=== PATIENT | female | born 1985 | race Caucasian/White ===

== ENCOUNTER 2016-09-20 20:06 | Emergency (ER) | payer OTHER ==
[2016-09-20 20:23] VITALS: BP 131/69
--- NOTE | 2016-09-20 20:26 | UC ---
Shoulder Pain HPI - HPI Summary HPI Summary: twisted right arm manas booth-believes her shoulder may have been dislocated - History of Current Complaint Chief Complaint: UCUpperExtremity Stated Complaint: SHOULDER PROBLEM Time Seen by Provider: 09/20/16 20:23 Hx Obtained From: Patient Hx Last Menstrual Period: 2 wks ago ?: No Onset/Duration: Sudden Onset, Lasting Hours - 1, Still Present Timing: Constant Severity Initially: Moderate Severity Currently: Moderate Location Of Pain: Is Discrete @ - posterior right shoulder Pain Intensity: 6 Pain Scale Used: 0-10 Numeric Character: Aching, Throbbing Aggravating Factor(s): Nothing Alleviating Factor(s): OTC Meds - 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 Associated Signs And Symptoms: Positive: Negative Related History: Dominant Hand Right - Allergies/Home Medications Allergies/Adverse Reactions: Allergies Allergy/AdvReac Type Severity Reaction Status Date / Time Erythromycin Allergy Severe Vomiting Verified 09/20/16 20:23 Home Medications: Home Medications Ibuprofen TAB* [Motrin TAB* 800 MG] 09/20/16 [History] NK [No Home Medications Reported] 09/20/16 [History Confirmed 09/20/16] PMH/Surg Hx/FS Hx/Imm Hx Previously Healthy: Yes - Surgical History Surgical History: None - Family History Known Family History: Positive: None Family History: no cardiovascular issues in family lineage - Social History Occupation: Employed Full-time Lives: With Family Alcohol Use: Occasionally Substance Use Type: None Smoking Status (MU): Never Smoked Tobacco Review of Systems Constitutional: Negative Skin: Negative Eyes: Negative ENT: Negative Respiratory: Negative Cardiovascular: Negative Gastrointestinal: Negative Genitourinary: Negative Motor: Negative Neurovascular: Negative Musculoskeletal: Arthralgia - right shoulder Neurological: Negative Psychological: Negative All Other Systems Reviewed And Are Negative: Yes Physical Exam Triage Information Reviewed: Yes Appearance: Well-Appearing, No Pain Distress, Well-Nourished Vital Signs: Initial Vital Signs Temp 98.2 F 09/20/16 20:17 Pulse 59 09/20/16 20:17 Resp 12 09/20/16 20:17 BP 131/69 09/20/16 20:17 Pulse Ox 100 09/20/16 20:17 Vital Signs Reviewed: Yes Eye Exam: Normal Eyes: Positive: Conjunctiva Clear ENT Exam: Normal ENT: Positive: Normal ENT inspection, Hearing grossly normal. Negative: Nasal congestion, Nasal drainage, Trismus, Muffled/hoarse voice Dental Exam: Normal Neck exam: Normal Neck: Positive: Supple, Nontender, No Lymphadenopathy Respiratory Exam: Normal Respiratory: Positive: Chest non-tender, Lungs clear, Normal breath sounds, No respiratory distress, No accessory muscle use Cardiovascular Exam: Normal Cardiovascular: Positive: RRR, No Murmur, Pulses Normal, Brisk Capillary Refill Musculoskeletal Exam: Normal Musculoskeletal: Positive: Strength Intact, ROM Intact, No Edema Neurological Exam: Normal Neurological: Positive: Alert, Muscle Tone Normal Psychological Exam: Normal Psychological: Positive: Normal Response To Family Skin Exam: Normal Diagnostics - Radiology No standard instances Xray Interpretation: No Acute Changes Radiology Interpretation Completed By: Radiologist Shoulder Course/Dx - Course Assessment/Plan: rice, ibuprofen, hydrocodone prn, sling for 1-3 days, follow with orthopedic MD - Differential Dx/Diagnosis Differential Diagnosis/HQI/PQRI: Contusion, Fracture (Closed), Sprain, Strain Provider Diagnoses: right shoulder strain Discharge - Discharge Plan Condition: Stable Disposition: HOME Patient Education Materials: Ibuprofen (By mouth), RICE Therapy (ED), Shoulder Pain (ED) Referrals: Isis Ordonez MD [Primary Care Provider] - Zeyad Fitzgerald MD [Medical Doctor] - 5 Days
--- NOTE | 2016-09-20 21:11 | RAD ---
Indication: Right shoulder pain. 3 views of the right shoulder demonstrates no fracture. No other bone or joint abnormality is identified. IMPRESSION: No fracture of the right shoulder is noted.
[2016-09-20] MEDS: HYDROcodone/ACETAMIN 5-325 MG* 1 TAB PO ONE ×2 (21:33→21:35)
== END 2016-09-20 21:34 | disposition home or self-care (01) ==
LOC: UCEAST 20:06
DX: S43.401A Unspecified sprain of right shoulder joint, initial encounter (principal); X50.1XXA Overexertion from prolonged static or awkward postures, initial encounter; Y92.9 Unspecified place or not applicable
CPT/HCPCS: 99202; G0463

== ENCOUNTER 2017-12-14 13:22 | Observation (INO) | payer OTHER ==
[2017-12-14 14:43] LABS: ABS Basophils 0 10^3/ul (0-0.2); ABS Eosinophils 0 10^3/ul (0-0.6); ABS Monocytes 0.4 10^3/ul (0-0.8); ABS Neutrophils 7.8 10^3/ul (1.5-7.7); ABS Nucleated RBC 0 10^3/ul; Eosinophil % 0.3 % (0-6); Hematocrit 38 % (35-47); Hemoglobin 13.1 g/dl (12.0-16.0); Lymphocyte % 10.3 % (25-47); Mean Corpuscular HGB Conc 35 g/dl (31-36); Mean Corpuscular Hemoglobin 34 pg (27-31); Mean Corpuscular Volume 97 fL (80-97); Mean Platelet Volume 9.7 um3 (7.4-10.4); Nucleated Red Blood Cells % 0; Platelet Count 167 10^3/ul (150-450); Red Blood Count 3.89 10^6/ul (4.00-5.40); Red Cell Distribution Width 13 % (10.5-15); White Blood Count 9.3 10^3/ul (3.5-10.8)
[2017-12-14 15:00] LABS: EGFR Non-African American 85.1 (>60)
[2017-12-14] MEDS ORDERED: Dinoprostone* 10 MG VAG.SUPP VAGINAL ONE (20:32)
[2017-12-14] MEDS ORDERED: Penicillin G Potassium IV* 5,000,000 UNITS in NS 0.9% 100 ML* 100 ML IVPB ONE (21:22)
--- NOTE | 2017-12-14 21:35 | HP ---
General Information - General Information Maternal Age: 32 Grav: 2 Para: 0 SAB: 1 IEA: 0 Estimated Due Date: 12/12/17 Determined By: LMP Gestational Age in Weeks and Days: 40 Weeks and 2 Days Maternal Blood Type and Rh: O Negative - Results this Serology/RPR Result: Non-Reactive Rubella Result: Immune HBsAg Result: Negative HIV Result: Negative GBS Culture Result: Positive Past Medical History Delivery History: See Records Pertinent Past Medical History: Non-Contributory Pertinent Past Surgical History: See Records - D&C Pertinent Family History: Non-Contributory - Antepartal Records Antepartal Records: Reviewed, Complicated by: - new onset gestational HTN Review of Systems Constitutional: Comfortable CV Complaint: No Respiratory: Shortness of Breath: No Gastrointestinal: No Nausea/Vomiting Genitourinary: Bleeding - since cervical exam this AM, No Dysuria, No Leaking Fluid Musculoskeletal: No Complaint Neurological: No Headache, No Visual Changes Movement: Normal Exam Allergies/Adverse Reactions: Allergies MS Erythromycin [Erythromycin] Allergy (Severe, Verified 11/13/16 15:28) Vomiting 128/94 Lab Values - Entire Visit: Laboratory Tests 12/14/17 12/14/17 12/14/17 14:33 14:33 14:33 WBC 9.3 RBC 3.89 L Hgb 13.1 Hct 38 MCV 97 MCH 34 H MCHC 35 RDW 13 Plt Count 167 MPV 9.7 Neut % (Auto) 84.2 H Lymph % (Auto) 10.3 L Schoolcraft % (Auto) 4.7 Eos % (Auto) 0.3 Baso % (Auto) 0.5 Absolute Neuts (auto) 7.8 H Absolute Lymphs (auto) 1.0 Absolute Monos (auto) 0.4 Absolute Eos (auto) 0 Absolute Basos (auto) 0 Absolute Nucleated RBC 0 Nucleated RBC % 0 Sodium 137 L Potassium 3.7 Chloride 103 Carbon Dioxide 24 Anion Gap 10 BUN 11 Creatinine 0.78 Est GFR ( Amer) 109.4 Est GFR (Non-Af Amer) 85.1 BUN/Creatinine Ratio 14.1 Glucose 96 Uric Acid 5.0 Calcium 9.6 Total Bilirubin 0.60 AST 16 ALT 11 Alkaline Phosphatase 2161 H Total Protein 6.5 Albumin 3.6 Globulin 2.9 Albumin/Globulin Ratio 1.2 Blood Type O Negative Antibody Screen Positive Antibody Identification Anti-D Direct Antiglob Test Negative - Measurements Height: 5 ft 4 in Weight: 146 lb Weight in lbs: 146 Body Mass Index (BMI): 25.0 Pre- Weight: 125 lb Weight Gained This : 21 lbs and 0 ozs - Exam Abdomen: No Upper Quadrant Pain Breast: Breast Exam Deferred CVA: No CVA Tenderness Extremities: No Edema Heart: Normal Rhythm/Heart Sounds Lungs: Clear Bilaterally Rectal: Rectal Exam Deferred - Abdominal Exam Abdomen Exam: Non-Tender, Fundal Height Consistent with Dates - Ultrasound/Biophysical Profile Ultrasound Status: Not Done - BPP in office: 02/10, vtx Targeted Exam Findings Cervical Exam: Closed Effacement: Thick Station: High Presenting Part: Vertex Membrane Status: Intact Bleeding/Discharge: Bloody Show - likely related to recent cervix check this AM EFM Findings - External Monitor Findings Baseline Heart Rate: 130 External Monitor Findings: Accelerations Present, No Pattern of Variable or Late Decelerations, Variability Moderate Contractions: Regular, Mild, < 45 Seconds Contraction Frequency: Q2-4 min Assessment/Plan - Reason for Visit Reason for Visit: 32yo at 40+2 wks, sent from office with new onset HTN. Previous BPs always 110s-120, today 142/90, 145/90 and 128/94 here. BPP and NST very reassuring. Discussed management of with gestational HTN and recommendation for induction of labor after 37-39 wks. Pt had contractions every 2-3 min for several hours. They slowed, so plan was to try cervidil, but at recheck (about 2100 tonight), contractions are still Q2 min. This is too frequent to safely give any additional medication, and cervix is too closed to do Sher bulb. Will allow to continue mustapha with plan to give cervidil if/when ctx decrease. If they persist, hopefully pt will have some cervical change. Labs reviewed and normal. Still collecting 24-hr urine protein. - Obstetrical Risk Factors Obstetrical Risk Factors: GBS Positive, Gestational Hypertension - Plan Plan: Induction, Cervical Ripening
[2017-12-14] MEDS ORDERED: diPHENhydraMINE PO* 50 MG PO PRN (21:39)
[2017-12-14] MEDS ORDERED: Penicillin G Potassium IV* 2,500,000 UNITS in NS 0.9% 100 ML* 100 ML IVPB SCH (22:00)
--- NOTE | 2017-12-20 21:42 | DS ---
DISCHARGE SUMMARY: DATE OF ADMISSION: 12/14/17 DATE OF DISCHARGE: 12/15/17 HOSPITAL COURSE: Mrs. Wheeler is a 32-year-old 2, para 0-1-0-0 with an estimated due date of 12/12/17 at 40 weeks and 3/7 days estimated gestational age. She was admitted to the hospital after new onset of gestational hypertension and underwent a 24-hour urine collection to rule out preeclampsia. Throughout her observation at Labor and Delivery, the patient's blood pressure remained stable as well as her vital signs. She did not have any signs or symptoms of labor and monitoring was reassuring. After a 24- hour urine collection, the patient did not meet criteria for preeclampsia. She was therefore discharged home to follow up with her physician at [facility] to schedule an induction of labor in the coming days as well as follow up after this visit. [id number]/CPS #: [id number] MTDD
== END 2017-12-15 15:34 | disposition home or self-care (01) ==
LOC: MCHOBOUT 13:22 → INTOOBSV 21:29 → MCHOB 21:29
PROVIDERS: ADMIT Obstetrics & Gynecology; ATTEND Obstetrics & Gynecology
DX: O13.3 Gestational [pregnancy-induced] hypertension without significant proteinuria, third trimester (principal); Z3A.40 40 weeks gestation of pregnancy
CPT/HCPCS: 36415; 80053; 84156; 84550; 85025; 86850; 86870; 86880; 86900; 86901; A9270-GY; G0378; J2540

== ENCOUNTER 2017-12-19 08:37 | Inpatient (IN) | payer OTHER ==
[2017-12-19] MEDS ORDERED: Dinoprostone* 10 MG VAG.SUPP VAGINAL ONE (09:28)
[2017-12-19] MEDS ORDERED: Penicillin G Potassium IV* 5,000,000 UNITS in NS 0.9% 100 ML* 100 ML IVPB ONE (10:00)
[2017-12-19 10:08] LABS: ABS Basophils 0 10^3/ul (0-0.2); ABS Eosinophils 0 10^3/ul (0-0.6); ABS Lymphocytes 1.1 10^3/ul (1.0-4.8); ABS Monocytes 0.5 10^3/ul (0-0.8); ABS Neutrophils 5.4 10^3/ul (1.5-7.7); ABS Nucleated RBC 0 10^3/ul; Eosinophil % 0.6 % (0-6); Hematocrit 39 % (35-47); Hemoglobin 13.6 g/dl (12.0-16.0); Lymphocyte % 15.6 % (25-47); Mean Corpuscular HGB Conc 35 g/dl (31-36); Mean Corpuscular Hemoglobin 33 pg (27-31); Mean Corpuscular Volume 96 fL (80-97); Mean Platelet Volume 9.9 um3 (7.4-10.4); Nucleated Red Blood Cells % 0; Platelet Count 174 10^3/ul (150-450); Red Blood Count 4.09 10^6/ul (4.00-5.40); Red Cell Distribution Width 13 % (10.5-15)
--- NOTE | 2017-12-19 21:29 | HP ---
General Information - General Information Maternal Age: 32 Grav: 2 Para: 0 SAB: 1 IEA: 0 Estimated Due Date: 12/12/17 Determined By: LMP Gestational Age in Weeks and Days: 41 Weeks and 0 Days Maternal Blood Type and Rh: O Negative - Results this Serology/RPR Result: Non-Reactive Rubella Result: Immune HBsAg Result: Negative HIV Result: Negative GBS Culture Result: Positive Past Medical History Pertinent Past Medical History: Non-Contributory Pertinent Past Surgical History: See Records - D&C Pertinent Family History: Non-Contributory - Antepartal Records Antepartal Records: Reviewed, Complicated by: - gestational HTN, recent onset Review of Systems Constitutional: Comfortable CV Complaint: No Respiratory: Shortness of Breath: No Gastrointestinal: No Nausea/Vomiting Genitourinary: No Dysuria, No Bleeding, No Leaking Fluid Musculoskeletal: No Complaint Neurological: No Headache Movement: Normal Exam Allergies/Adverse Reactions: Allergies erythromycin base Adverse Reaction (Severe, Verified 12/18/17 19:39) Vomiting 120s/80-90s Lab Values - Entire Visit: Laboratory Tests 12/19/17 12/19/17 12/19/17 09:15 09:45 09:45 WBC 7.0 RBC 4.09 Hgb 13.6 Hct 39 MCV 96 MCH 33 H MCHC 35 RDW 13 Plt Count 174 MPV 9.9 Neut % (Auto) 76.0 Lymph % (Auto) 15.6 L Schuyler % (Auto) 7.4 H Eos % (Auto) 0.6 Baso % (Auto) 0.4 Absolute Neuts (auto) 5.4 Absolute Lymphs (auto) 1.1 Absolute Monos (auto) 0.5 Absolute Eos (auto) 0 Absolute Basos (auto) 0 Absolute Nucleated RBC 0 Nucleated RBC % 0 Sodium 135 Potassium 3.7 Chloride 102 Carbon Dioxide 23 Anion Gap 10 BUN 8 Creatinine 0.65 Est GFR ( Amer) 135.0 Est GFR (Non-Af Amer) 105.0 BUN/Creatinine Ratio 12.3 Glucose 75 Calcium 9.6 Total Bilirubin 0.80 AST 17 ALT 12 Alkaline Phosphatase 2189 H Total Protein 6.9 Albumin 3.8 Globulin 3.1 Albumin/Globulin Ratio 1.2 Blood Type O Negative Antibody Screen Negative - Measurements Height: 5 ft 5 in Weight: 145 lb Weight in lbs: 145 Body Mass Index (BMI): 24.1 Pre- Weight: 125 lb Weight Gained This : 20 lbs and 0 ozs - Exam Abdomen: No Upper Quadrant Pain Breast: Breast Exam Deferred CVA: No CVA Tenderness Extremities: No Edema Heart: Normal Rhythm/Heart Sounds Lungs: Clear Bilaterally - Abdominal Exam Abdomen Exam: Non-Tender, Fundal Height Consistent with Dates - Ultrasound/Biophysical Profile Ultrasound Status: Not Done Targeted Exam Findings Cervical Exam: 2cm Effacement: <50% Station: -3 Presenting Part: Vertex Membrane Status: Intact EFM Findings - External Monitor Findings Baseline Heart Rate: 130 External Monitor Findings: Accelerations Present, No Pattern of Variable or Late Decelerations, Variability Moderate Contractions: Irregular - Q4-6, Mild Assessment/Plan - Reason for Visit Reason for Visit: 41 wks today, gestational HTN new onset early this week, declined induction Thursday. Too many ctx last night for Cervidil. Plan Cervidil today since ctx have spaced out a little and cervix still not favorable. Labs normal - Obstetrical Risk Factors Obstetrical Risk Factors: GBS Positive, Post-Dates, Gestational Hypertension - Plan Plan: Induction, Cervical Ripening - Date/Time of Admission Date of Admission: 12/19/17 Time of Admission: 09:00
[2017-12-19] MEDS ORDERED: OBEPIDURAL* 250 ML EPIDURAL ONE (21:36)
[2017-12-19] MEDS ORDERED: fentaNYL* 50 MCG/ML 2 ML VIAL (100 MCG VIAL) ONE (21:37)
[2017-12-19] MEDS ORDERED: Terbutaline INJ* 1 MG/ML VIAL ONE (22:20)
[2017-12-19] MEDS ORDERED: Sodium Citrate/Citric Acid* 15 ML UDC PO PRN (22:26)
[2017-12-19] MEDS ORDERED: Phenylephrine IV* 40 MCG/ML 10 ML SYRINGE IV PUSH PRN (22:26)
[2017-12-19] MEDS ORDERED: Famotidine TAB* 20 MG PO PRN (22:26)
[2017-12-19] MEDS: Phenylephrine IV* 40 MCG/ML 10 ML SYRINGE IV PUSH PRN ×2 (22:43→22:50)
[2017-12-19] MEDS ORDERED: OBEPIDURAL* 250 ML EPIDURAL SCH (23:00)
[2017-12-19] MEDS: Penicillin G Potassium IV* 2,500,000 UNITS in NS 0.9% 100 ML* 100 ML IVPB SCH (23:19)
[2017-12-20] MEDS: Penicillin G Potassium IV* 2,500,000 UNITS in NS 0.9% 100 ML* 100 ML IVPB SCH (03:40)
[2017-12-20] MEDS ORDERED: Oxytocin in LR* 20 UNITS/1,000 ML BAG IVPB ONE (03:44)
[2017-12-20] MEDS ORDERED: RHO D Immune Globulin (HUMAN)* 300 MCG = 1,500 I.U. INJ IM ONE (05:58)
[2017-12-20] MEDS ORDERED: Acetaminophen TAB* 325 MG PO PRN (05:58)
[2017-12-20] MEDS ORDERED: Dibucaine 1% 28.35 GM TUBE PR PRN (05:58)
[2017-12-20] MEDS ORDERED: Witch Hazel PAD* JAR TOPICAL PRN (05:58)
[2017-12-20] MEDS ORDERED: Oxytocin in LR* 20 UNITS/1,000 ML BAG IVPB SCH (06:00)
--- NOTE | 2017-12-20 06:11 | PROCNOTE ---
[facility] OB: Delivery Note - Delivery A Date of : 12/20/17 Time of : 05:18 Sex: Male Weight at : 7 lb Score 1 Minute: 8 Score 5 Minutes: 9 Gestational Age in Weeks and Days at Delivery: 41 Weeks and 1 Days Delivery Method: Spontaneous Vaginal Labor: Induced - Gestational HTN, 41 wks Did Patient attempt ?: N/A, No Previous Amniotic Fluid: Clear Estimated Blood Loss: 500 Anesthesia/Analgesia: CEI for Labor Delivered By: Deepthi Bianchi - Nursery Level of Nursery: Regular/Bedside - Perineum Perineal Injury: Midline Episiotomy, 2nd Degree Perineal Repair: By Delivering Practioner - repaired with 3-0 Vicryl Rapide - Events Delivery Events of Note: Pitocin Only After Delivery, Full Course of Antibiotics
[2017-12-20] MEDS: Ibuprofen TAB* 600 MG PO PRN ×3 (08:40→20:38)
[2017-12-20] MEDS: Docusate CAP* 100 MG PO SCH ×3 (08:43→20:38)
[2017-12-20] MEDS: Simethicone TAB* 80 MG TAB.CHEW PO SCH ×4 (08:44→23:53)
[2017-12-21] MEDS: Ibuprofen TAB* 600 MG PO PRN ×3 (05:08→21:47)
[2017-12-21 06:18] LABS: ABS Basophils 0.1 10^3/ul (0-0.2); ABS Eosinophils 0.1 10^3/ul (0-0.6); ABS Lymphocytes 1.7 10^3/ul (1.0-4.8); ABS Monocytes 0.6 10^3/ul (0-0.8); ABS Neutrophils 7.5 10^3/ul (1.5-7.7); ABS Nucleated RBC 0 10^3/ul; Eosinophil % 0.5 % (0-6); Hematocrit 25 % (35-47); Hemoglobin 8.6 g/dl (12.0-16.0); Lymphocyte % 17.2 % (25-47); Mean Corpuscular HGB Conc 35 g/dl (31-36); Mean Corpuscular Hemoglobin 34 pg (27-31); Mean Corpuscular Volume 97 fL (80-97); Mean Platelet Volume 9.4 um3 (7.4-10.4); Nucleated Red Blood Cells % 0; Platelet Count 140 10^3/ul (150-450); Red Blood Count 2.53 10^6/ul (4.00-5.40); Red Cell Distribution Width 13 % (10.5-15); White Blood Count 9.8 10^3/ul (3.5-10.8)
[2017-12-21] MEDS: Ferrous Gluconate TAB* 324 MG TAB PO SCH ×2 (11:04→21:46)
[2017-12-21] MEDS: Docusate CAP* 100 MG PO SCH ×3 (11:04→21:46)
--- NOTE | 2017-12-21 14:39 | PTEDU ---
Patient Name: NAWAF CARSON NAWAF CARSON selected video: Follow Me Mum: [employer] [facility] Successful to view on 12/22/19 at 2:39:00 PM [id number]
[2017-12-22] MEDS: Ibuprofen TAB* 600 MG PO PRN (08:01)
[2017-12-22] MEDS: Docusate CAP* 100 MG PO SCH (08:02)
[2017-12-22] MEDS: Ferrous Gluconate TAB* 324 MG TAB PO SCH (08:02)
[2017-12-22 09:26] VITALS: BP 120/72
== END 2017-12-22 11:30 | disposition home or self-care (01) | DRG 775 ==
LOC: MCHOBOUT 08:37 → MCHOB 09:35 → OBSVTOIN 09:35 → INTOOBSV 09:35 → MCHOB 12-20 07:55
PROVIDERS: ADMIT Obstetrics & Gynecology; ATTEND Obstetrics & Gynecology
PROC: 10E0XZZ Delivery of Products of Conception, External Approach (ICD-10-PCS; principal; 2017-12-20)
PROC: 0KQM0ZZ Repair Perineum Muscle, Open Approach (ICD-10-PCS; 2017-12-20)
PROC: 3E033VJ Introduction of Other Hormone into Peripheral Vein, Percutaneous Approach (ICD-10-PCS; 2017-12-20)
PROC: 10907ZC Drainage of Amniotic Fluid, Therapeutic from Products of Conception, Via Natural or Artificial Opening (ICD-10-PCS; 2017-12-20)
PROC: 0W8NXZZ Division of Female Perineum, External Approach (ICD-10-PCS; 2017-12-20)
DX: O48.0 Post-term pregnancy (principal); O13.4 Gestational [pregnancy-induced] hypertension without significant proteinuria, complicating childbirth; O99.824 Streptococcus B carrier state complicating childbirth; O90.81 Anemia of the puerperium; D64.9 Anemia, unspecified; O70.1 Second degree perineal laceration during delivery; Z3A.41 41 weeks gestation of pregnancy; Z37.0 Single live birth
CPT/HCPCS: 36415; 80053; 85025; 85461; 86850; 86900; 86901; A9270-GY; J2540; J2790; J3010; J3105

== ENCOUNTER 2018-02-12 21:08 | Emergency (ER) | payer OTHER ==
[2018-02-12 21:26] VITALS: BP 133/79
[2018-02-12] MEDS ORDERED: Lidocaine 1%* 5 ML VIAL INJ ONE (21:35)
--- NOTE | 2018-02-12 21:51 | UC ---
Lower Extremity/Ankle HPI - HPI Summary HPI Summary: patient stubbed her toe tonight against a piece of furniture in her house and noticed toe was bent outward, she has some numbness and pain on it. - History of Current Complaint Chief Complaint: UCLowerExtremity Stated Complaint: TOE INJURY Time Seen by Provider: 02/12/18 21:24 Hx Obtained From: Patient Hx Last Menstrual Period: 2 wks ago ?: No Onset/Duration: Sudden Onset, Lasting Hours Severity Initially: Mild Severity Currently: Mild Pain Intensity: 2 Aggravating Factor(s): Standing Alleviating Factor(s): Rest, Elevation, Ice Able to Bear Weight: Yes - Risk Factors Gout Risk Factors: Negative DVT Risk Factors: Negative Septic Arthritis Risk Factor: Negative - Allergies/Home Medications Allergies/Adverse Reactions: Allergies Allergy/AdvReac Type Severity Reaction Status Date / Time erythromycin base AdvReac Severe Vomiting Verified 02/12/18 21:27 PMH/Surg Hx/FS Hx/Imm Hx Previously Healthy: Yes - Surgical History Surgical History: Yes Surgery Procedure, Year, and Place: D &C. WISDOM TEETH - Family History Known Family History: Positive: Cardiac Disease, Hypertension Family History: no cardiovascular issues in family lineage - Social History Alcohol Use: Weekly Substance Use Type: None Smoking Status (MU): Never Smoked Tobacco Have You Smoked in the Last Year: No - Immunization History Most Recent Influenza Vaccination: Most Recent Pneumonia Vaccination: n/a Review of Systems Constitutional: Negative Musculoskeletal: Arthralgia All Other Systems Reviewed And Are Negative: Yes Physical Exam Triage Information Reviewed: Yes Appearance: Well-Appearing, No Pain Distress, Well-Nourished Vital Signs: Initial Vital Signs Temp 98.8 F 02/12/18 21:20 Pulse 62 02/12/18 21:20 Resp 16 02/12/18 21:20 BP 133/79 02/12/18 21:20 Pulse Ox 98 02/12/18 21:20 Vital Signs Reviewed: Yes Eyes: Positive: Conjunctiva Clear ENT: Positive: Hearing grossly normal Cardiovascular: Positive: RRR, No Murmur, Pulses Normal, Brisk Capillary Refill Musculoskeletal: Positive: Strength Intact, ROM Intact, Edema @ - right fifth toe, Other: - lateral subluxation of distal fifth toe Neurological: Positive: Alert, Muscle Tone Normal Skin Exam: Normal Lower Extremity Course/Dx - Course Course Of Treatment: xray shows displaced fracture of proximal phalanx 5th right toe. Reduction was achieved with digital block with lidocaine 1% through traction. Capillary refill is brisk. Toe splint placed and taped with 4th toe. Post op shoe fitted on patient, f/u with orthopedics in 1-2 weeks - Differential Dx/Diagnosis Provider Diagnoses: 5th right Toe fracture Discharge - Sign-Out/Discharge Documenting (check all that apply): Patient Departure - Discharge Plan Condition: Stable Disposition: HOME Patient Education Materials: Toe Fracture (ED) Referrals: Isis Ordonez MD [Primary Care Provider] - Zeyad Harris MD [Medical Doctor] - - Billing Disposition and Condition Condition: STABLE Disposition: Home
--- NOTE | 2018-02-13 06:56 | RAD ---
INDICATION: Right fifth toe injury. TECHNIQUE: 3 views of the right fifth toe were obtained. FINDINGS: There is a transverse fracture of the distal aspect of the proximal phalanx. The fracture fragments are slightly distracted. There is lateral angulation of the distal fragment relative to the proximal fragment. IMPRESSION: TRANSVERSE SLIGHTLY DISPLACED, ANGULATED FRACTURE OF THE FIFTH PROXIMAL PHALANX. R0
== END 2018-02-12 22:25 | disposition home or self-care (01) ==
LOC: UCEAST 21:08
DX: S92.511A Displaced fracture of proximal phalanx of right lesser toe(s), initial encounter for closed fracture (principal); W22.03XA Walked into furniture, initial encounter; Y93.9 Activity, unspecified; Y92.9 Unspecified place or not applicable; Z88.1 Allergy status to other antibiotic agents; Z82.49 Family history of ischemic heart disease and other diseases of the circulatory system
CPT/HCPCS: 28630; 99212; G0463

== ENCOUNTER 2021-08-07 10:14 | Inpatient (IN) ==
[2021-08-07] MEDS ORDERED: Penicillin G Potassium IV 5,000,000 UNITS in NS 0.9% 100 ml BAG 100 ML IVPB ONE (11:41)
[2021-08-07] MEDS ORDERED: Buffered Lidocaine 1% SYRIN 1 ml INTRADERM ONE (11:41)
[2021-08-07] MEDS ORDERED: Penicillin G Potassium IV 3,000,000 UNITS in NS 0.9% 100 ml BAG 100 ML IVPB SCH (12:00)
[2021-08-07] MEDS ORDERED: Lactated Ringers 1000 ml BAG 1,000 ML IV SCH (12:00)
[2021-08-07 12:05] LABS: ABS Lymphocytes 0.8 10^3/ul (1.0-4.8); ABS Monocytes 0.4 10^3/ul (0-0.8); ABS Neutrophils 6.2 10^3/ul (1.5-7.7); Eosinophil % 0.5 %; Hematocrit 32 % (35-47); Hemoglobin 11.2 g/dL (12.0-16.0); Lymphocyte % 10.3 %; Mean Corpuscular HGB Conc 35 g/dL (31-36); Mean Corpuscular Hemoglobin 34 pg (27-31); Mean Corpuscular Volume 97 fL (80-97); Mean Platelet Volume 9.9 fL (7.4-10.4); Platelet Count 182 10^3/uL (150-450); Red Blood Count 3.33 10^6 /uL (3.70-4.87); Red Cell Distribution Width 13 % (10-15); White Blood Count 7.4 10^3/uL (3.5-10.8)
[2021-08-07 12:26] LABS: Urine Benzodiazepine Screen None Detected (None Detect); Urine Opiates Screen None Detected (None Detect)
[2021-08-07] MEDS ORDERED: diPHENhydraMINE IV 50 MG/ML 1 ml VIAL (BENADRYL) SLOW PUSH ONE (23:19)
[2021-08-08] MEDS: Penicillin G Potassium IV 3,000,000 UNITS in NS 0.9% 100 ml BAG 100 ML IVPB SCH ×6 (01:28→23:38)
[2021-08-08] MEDS ORDERED: Oxytocin in LR 20 UNITS/1,000 ML BAG IVPB SCH (06:00)
[2021-08-08] MEDS ORDERED: Dinoprostone 10 MG VAG.SUPP VAGINAL ONE (18:28)
[2021-08-08 18:39] LABS: ABS Basophils 0.1 10^3/ul (0-0.2); ABS Lymphocytes 0.9 10^3/ul (1.0-4.8); ABS Monocytes 0.7 10^3/ul (0-0.8); ABS Neutrophils 8.5 10^3/ul (1.5-7.7); Eosinophil % 0.3 %; Hematocrit 32 % (35-47); Hemoglobin 11.3 g/dL (12.0-16.0); Lymphocyte % 8.6 %; Mean Corpuscular HGB Conc 36 g/dL (31-36); Mean Corpuscular Hemoglobin 34 pg (27-31); Mean Corpuscular Volume 96 fL (80-97); Mean Platelet Volume 9.8 fL (7.4-10.4); Platelet Count 165 10^3/uL (150-450); Red Cell Distribution Width 13 % (10-15); White Blood Count 10.2 10^3/uL (3.5-10.8)
[2021-08-08 18:58] LABS: Albumin 3.4 g/dL (3.2-5.2); Albumin/Globulin Ratio 1.3 (1-3); Calcium 8.6 mg/dL (8.6-10.3); Globulin 2.7 g/dL (2-4); Potassium 2.8 mmol/L (3.5-5.0); Total Bilirubin 0.9 mg/dL (0.2-1.0); Total Protein 6.1 g/dL (6.4-8.9); eGFR CKD-EPI 126.5 (>60)
[2021-08-08] MEDS ORDERED: Nalbuphine 10 MG/ML 1 ML VIAL IV PRN (21:08)
[2021-08-08] MEDS ORDERED: Promethazine INJ(RESTRICTED) 25 MG/ML 1 ml VIAL IV PRN (21:09)
[2021-08-09] MEDS: Penicillin G Potassium IV 3,000,000 UNITS in NS 0.9% 100 ml BAG 100 ML IVPB SCH ×3 (03:28→12:30)
[2021-08-09] MEDS ORDERED: Oxytocin in LR 20 UNITS/1,000 ML BAG IVPB SCH ×2 (09:00→16:00)
[2021-08-09] MEDS ORDERED: OBEPIDURAL 250 ML EPIDURAL ONE (13:13)
[2021-08-09] MEDS ORDERED: Lidocaine 2% w/ EPI 1:200,000 MPF 20 ML SDV VIAL ONE (14:00)
[2021-08-09] MEDS ORDERED: Lactated Ringers 1000 ml BAG 1,000 ML IV ONE (14:16)
[2021-08-09] MEDS ORDERED: Lactated Ringers 1000 ml BAG 500 ML IV PRN (14:16)
[2021-08-09] MEDS ORDERED: Sodium Citrate/Citric Acid LIQ 15 ML UDC PO PRN (14:16)
[2021-08-09] MEDS ORDERED: Phenylephrine 40 mcg/mL 10mL (400mcg) SYRINGE IV PUSH PRN ×2 (14:16)
[2021-08-09] MEDS: Lactated Ringers 1000 ml BAG 1,000 ML IV ONE (14:57)
[2021-08-09] MEDS: Potassium Chlor 20 meq TAB.ER PO SCH ×2 (14:58→21:51)
[2021-08-09] MEDS ORDERED: OBEPIDURAL 250 ML EPIDURAL SCH (15:00)
[2021-08-09] MEDS ORDERED: Lactated Ringers 1000 ml BAG 1,000 ML IV SCH ×3 (15:00→16:00)
[2021-08-09] MEDS ORDERED: Witch Hazel PAD JAR TOPICAL PRN (16:00)
[2021-08-09] MEDS ORDERED: Glycerin ADULT 2.4 gm SUPP PR PRN (16:00)
[2021-08-09] MEDS ORDERED: RHO D Immune Globulin (HUMAN) 300 MCG = 1,500 I.U. INJ IM PRN (16:00)
[2021-08-09] MEDS: Dibucaine 1% OINT 28.35 GM TUBE PR PRN (18:37)
[2021-08-10 07:24] LABS: ABS Eosinophils 0.1 10^3/ul (0-0.6); ABS Lymphocytes 0.9 10^3/ul (1.0-4.8); ABS Monocytes 0.7 10^3/ul (0-0.8); Eosinophil % 0.9 %; Hematocrit 29 % (35-47); Hemoglobin 10.1 g/dL (12.0-16.0); Lymphocyte % 10.6 %; Mean Corpuscular HGB Conc 35 g/dL (31-36); Mean Corpuscular Hemoglobin 34 pg (27-31); Mean Corpuscular Volume 98 fL (80-97); Platelet Count 147 10^3/uL (150-450); Red Blood Count 2.95 10^6 /uL (3.70-4.87); Red Cell Distribution Width 13 % (10-15); White Blood Count 8.7 10^3/uL (3.5-10.8)
[2021-08-10] MEDS: Lactated Ringers 1000 ml BAG 1,000 ML IV ONE (08:05)
[2021-08-10] MEDS: Penicillin G Potassium IV 3,000,000 UNITS in NS 0.9% 100 ml BAG 100 ML IVPB SCH ×2 (08:06→08:07)
[2021-08-10] MEDS: Potassium Chlor 20 meq TAB.ER PO SCH ×3 (09:09→21:59)
[2021-08-10] MEDS: Dibucaine 1% OINT 28.35 GM TUBE PR PRN (16:57)
[2021-08-11] MEDS: Potassium Chlor 20 meq TAB.ER PO SCH (08:05)
[2021-08-11 08:15] VITALS: BP 151/86
== END 2021-08-11 12:23 | disposition home or self-care (01) | DRG 560 ==
LOC: MCHOBOUT 10:14 → MCHOB 10:16
PROVIDERS: ADMIT Obstetrics & Gynecology; ATTEND Obstetrics & Gynecology